=== PATIENT | male | born 1965 | race Caucasian/White ===

== ENCOUNTER 2019-04-10 19:48 | Emergency (ER) | payer OTHER ==
[~2019-04-10] VITALS: Ht 175.3 cm; Wt 80.7 kg
[2019-04-10] MEDS ORDERED: ZANAFLEX4 MG PO (21:45)
[2019-04-10] MEDS ORDERED: MEDROLDOSEPACK PO (21:45)
[2019-04-10] MEDS ORDERED: NAPROSYN500 MG PO (21:45)
[2019-04-10] MEDS ORDERED: NORCO 5-325 TA1 EAC1 PO (21:45)
[2019-04-10 21:57] VITALS: BP 168/69
== END 2019-04-10 21:59 | disposition home or self-care (01) ==
LOC: M.ERS 19:48
DX: S39.012A Strain of muscle, fascia and tendon of lower back, initial encounter (principal); X50.9XXA Other and unspecified overexertion or strenuous movements or postures, initial encounter; Y93.89 Activity, other specified; Y92.89 Other specified places as the place of occurrence of the external cause; Y99.8 Other external cause status